=== PATIENT | male | born 1975 | race Two or more races ===

== ENCOUNTER 2018-11-10 10:44 | Emergency (ER) | payer MEDICAID ==
[~2018-11-10] VITALS: Ht 177.8 cm; Wt 86.5 kg
[2018-11-10] MEDS ORDERED: insulin (11:44)
[2018-11-10] MEDS ORDERED: IBUPROFEN 600MG TABLET PO ONE (12:15)
[2018-11-10] MEDS ORDERED: TETANUS, DIPHTHERIA, PERTUSSIS VAC/PF 0.5ML (>7YR OLD) IM ONE (12:15)
[2018-11-10] MEDS ORDERED: SILVER SULFADIAZINE 1% CREAM 25GM TOP ONE (12:15)
[2018-11-10 12:21] VITALS: BP 123/75
== END 2018-11-10 12:43 | disposition home or self-care (01) ==
LOC: ER 10:44
DX: T22.211A Burn of second degree of right forearm, initial encounter (principal); E11.9 Type 2 diabetes mellitus without complications; F17.200 Nicotine dependence, unspecified, uncomplicated; Z79.4 Long term (current) use of insulin; X16.XXXA Contact with hot heating appliances, radiators and pipes, initial encounter; Y93.89 Activity, other specified; Y92.018 Other place in single-family (private) house as the place of occurrence of the external cause
CPT/HCPCS: 16020; 82962; 90471; 90715; 99284